=== PATIENT | female | born 1990 | race American Indian/Alaskan Native ===

== ENCOUNTER 2016-06-24 06:08 | Inpatient (IN) | payer MEDICAID ==
[~2016-06-24 06:08] MED LIST: ANCEF/STERILE WATER 2 GM/20 ML IV NR
[2016-06-24] MEDS ORDERED: LACTATED RINGERS 1,000 ML ONE ×2 (06:22→08:11)
[2016-06-24] MEDS: LACTATED RINGERS 1,000 ML IV SCH ×3 (06:33→10:19)
[2016-06-24] MEDS ORDERED: BICITRA PO ONE (06:42)
[2016-06-24] MEDS ORDERED: REGLAN IV ONE (06:42)
[2016-06-24] MEDS ORDERED: PEPCID IV ONE (06:42)
[2016-06-24] MEDS ORDERED: PITOCin/NS 20 UNIT/1000ML DRIP 20 UNITS/1,000 ML BAG IV SCH ×2 (07:00→12:17)
[2016-06-24 07:02] LABS: Basophils % (Auto) 0.3 % (0.0-1.8); Eosinophils % (Auto) 1.1 % (0.0-4.3); Hematocrit 30.5 % (30.3-42.9); Hemoglobin 9.3 gm/dl (10.1-14.3); Mean Corpuscular HGB Conc 30 % (30-34); Mean Corpuscular Hemoglobin 22 pg (28-32); Mean Corpuscular Volume 71 fl (79-97); Platelet Count 265 K/mm3 (140-440); Red Blood Count 4.27 M/mm3 (3.65-5.03); Red Cell Distribution Width 16.8 % (13.2-15.2)
--- NOTE | 2016-06-24 07:36 | Anesthesia Day of Surgery ---
Anesthesia Day of Surgery - Day of Surgery Patient Examined: Yes Patient H&P Reviewed: Yes Patient is NPO: Yes
--- NOTE | 2016-06-24 07:36 | Anesthesia Consultation ---
Anesthesia Consult and Med Hx Date of service: 06/24/16 - Airway Anesthetic Teeth Evaluation: Good ROM Head & Neck: Adequate Mental/Hyoid Distance: Adequate Mallampati Class: Class II Intubation Access Assessment: Probably Good - Pulmonary Exam CTA: Yes - Cardiac Exam Cardiac Exam: RRR - Pre-Operative Health Status ASA Pre-Surgery Classification: ASA2 Proposed Anesthetic Plan: Spinal - Pulmonary Hx Asthma: No - Cardiovascular System Hx Hypertension: No - Central Nervous System Hx Seizures: No Hx Psychiatric Problems: No - Endocrine Hx Renal Disease: No Hx Hypothyroidism: No Hx Hyperthyroidism: No - Hematic Hx Anemia: No Hx Sickle Cell Disease: No - Other Systems Hx Alcohol Use: No
[2016-06-24] MEDS ORDERED: NARCAN 0.4 MG/1 ML IV PRN ×2 (07:37→12:17)
[2016-06-24] MEDS ORDERED: DILAUDID IV PRN (07:37)
[2016-06-24] MEDS ORDERED: SODIUM CHLORIDE FLUSH SYRINGE 10 ML IV NR ×2 (08:00→12:17)
[2016-06-24] MEDS ORDERED: MORPHINE ONE (08:14)
--- NOTE | 2016-06-24 08:16 | History and Physical Report ---
History of Present Illness Date of examination: 06/24/16 Date of admission: 06/24/16 06:37 Chief complaint: I'm having contractions History of present illness: Patient is a 25 year old who presents at 38+ weeks in labor and dilated to 4 cm. Patient has a history of a prior classical and 2 additional for a total of 3 previous c/sections. Patient is also desiring tubal ligation. Her course has been uncomplicated. Past History Past Medical History: no pertinent history Past Surgical History: section Social history: - Obstetrical History Expected Date of Delivery: 06/30/16 Actual Gestation: 39 Week(s) 1 Day(s) : 5 Number of Living Children: 3 Medications and Allergies Allergies Allergy/AdvReac Type Severity Reaction Status Date / Time No Known Allergies Allergy Verified 06/16/16 20:04 Home Medications Medication Instructions Recorded Confirmed Last Taken Type No Known Home Medications [No 06/24/16 06/24/16 Unknown History Reported Home Medications] Active Meds: Active Medications Cefazolin Sodium (Ancef/Sterile Water 2 Gm/20 Ml) 2 gm IV PREOP NR Stop: 06/24/16 23:59 Hydromorphone HCl (Dilaudid) 0.5 mg IV Q5M PRN PRN Reason: Breakthrough Pain Stop: 06/24/16 07:53 Lactated Ringer's (Lactated Ringers) 1,000 mls @ 2,250 mls/hr IV PREOP LILIA Stop: 06/25/16 07:27 Last Admin: 06/24/16 07:19 Dose: 2,250 mls/hr Oxytocin/Sodium Chloride (Pitocin/Ns 20 Unit/1000ml Drip) 20 units in 1,000 mls @ 0 mls/hr IV TITR LILIA PRN Reason: As Directed Naloxone HCl (Narcan 0.4 Mg/1 Ml) 0.2 mg IV Q2MIN PRN PRN Reason: Res Rate </= 8 or 02 SAT < 92% Stop: 06/26/16 07:38 Sodium Chloride (Sodium Chloride Flush Syringe 10 Ml) 10 ml IV PRN NR Review of Systems All systems: negative Genitourinary: contractions - Vital Signs Vital signs: Vital Signs Pulse Pulse Ox 71 98 06/24/16 06:25 06/24/16 06:25 Temp Pulse Resp BP Pulse Ox 98.2 F 70 112/71 97 06/24/16 06:26 06/24/16 08:07 06/24/16 06:26 06/24/16 08:07 - Physical Exam Breasts: Cardiovascular: Regular rate, Normal S1, Normal S2 Lungs: Positive: Clear to auscultation, Normal air movement Abdomen: Positive: normal appearance, soft, normal bowel sounds. Negative: distention, tenderness Vulva: both: normal Vagina: Positive: normal moisture. Negative: discharge Cervix: Negative: lesion, discharge Uterus: Positive: normal size, normal contour Adnexa: both: normal Anus/Rectum: Positive: normal perianal skin, heme negative. Negative: rectal mass, hemorrhoids Extremities: Deep Tendon Reflex Grade: Normal +2 - Obstetrical FHR: auscultation normal Cervical Dilatation: 5 Cervical Effacement Percentage: 100 station: 0 Results Result Diagrams: 06/24/16 06:33 Abnormal lab results 06/24/16 Range/Units 06:33 WBC 12.0 H (4.5-11.0) K/mm3 Hgb 9.3 L (10.1-14.3) gm/dl MCV 71 L (79-97) fl MCH 22 L (28-32) pg RDW 16.8 H (13.2-15.2) % Seg Neutrophils % 72.5 H (40.0-70.0) % Seg Neutrophils # 8.7 H (1.8-7.7) K/mm3 All other labs normal. Assessment and Plan IUP at 30.1 presenting for repeat in labor. Admit to L&D. prepare for repeat and bilateral tubal ligation.
[2016-06-24] MEDS ORDERED: WATER FOR IRRIG STERILE IR ONE (08:38)
[2016-06-24] MEDS ORDERED: NACL 0.9% IR ONE (08:38)
[2016-06-24] MEDS ORDERED: ZOFRAN ONE (08:40)
[2016-06-24] MEDS ORDERED: NACL 0.9% 500 ML 500 ML IV ONE (08:57)
[2016-06-24] MEDS ORDERED: TORADOL ONE (09:27)
--- NOTE | 2016-06-24 09:39 | Procedure Note ---
OB Delivery Note - Delivery Date of Delivery: 06/24/16 Surgeon: BETO LOCKE Estimated blood loss: other (800cc) - Vaginal Delivery presentation: vertex Delivery position: OA - Section Preop diagnosis: repeat , desires sterilization Postop diagnosis: same section procedure: repeat low transverse, other (unilateral tubal ligation (right side only)) Disposition: PACU - Infant A at 1 minute: 8 at 5 minutes: 9 Infant Gender: Male (7 pounds 7 ounces 3371 grams)
--- NOTE | 2016-06-24 09:51 | Post Anesthesia Evaluation ---
- Post Anesthesia Evaluation Patient Participated: Yes Airway Patent: Yes Stable Respiratory Function: Yes Nausea/Vomiting: No Temp > 96.8F: Yes Pain Manageable: Yes Adequeate Hydration: Yes Anesthesia Complications: No Block Receding Appropriately: Yes Patient on Ventilator: No
[2016-06-24] MEDS ORDERED: NACL 0.9% 1000 ML 1,000 ML ONE (10:37)
[2016-06-24] MEDS ORDERED: D5LR 1,000 ML IV SCH (12:17)
[2016-06-24] MEDS ORDERED: MORPHINE IV PRN (12:17)
[2016-06-24] MEDS ORDERED: ZOFRAN IV PRN (12:17)
[2016-06-24] MEDS ORDERED: LANSINOH TP PRN (12:17)
[2016-06-24] MEDS ORDERED: MYLICON PO PRN (12:17)
[2016-06-24] MEDS ORDERED: TUCKS PAD TP PRN (12:17)
[2016-06-24] MEDS ORDERED: MILK OF MAGNESIA PO PRN (12:17)
--- NOTE | 2016-06-24 14:24 | Operative Report ---
PREOPERATIVE DIAGNOSES: 1. Intrauterine at 39 and 1/7 weeks. 2. Active labor. 3. Previous section x3. 4. Undesired fertility. POSTOPERATIVE DIAGNOSES. 1. Intrauterine at 39 and 1/7 weeks. 2. Active labor. 3. Previous section x3. 4. Undesired fertility. PROCEDURE: Repeat low transverse section with extensive lysis of adhesions to unilateral tubal ligation. SURGEON: Kamini Goidnez MD. ANESTHESIA: Spinal epidural. ESTIMATED BLOOD LOSS: 800. IV FLUIDS: 1300. URINE OUTPUT: 150 mL. FINDINGS: Viable male , weight 7 pounds 7 ounces, 3371 grams, and Apgars 8 and 9. DESCRIPTION OF PROCEDURE: The patient presented to the OR with IV running in place. She was given spinal anesthesia without difficulty. She was then placed in dorsal supine position with a leftward tilt and prepped and draped in normal sterile fashion. Attention was then turned to the patient's abdomen. An Allis test confirmed adequate anesthesia. Pfannenstiel incision was then made along the previous section using a scalpel and carried to the underlying fascia using a scalpel and Bovie. The fascia layer was densely adherent to the underlying muscle, so upon entering to the fascia with some areas of the muscles were also identified. The fascia was able to be extended bilaterally and the superior aspect of the fascia was grasped and tented upward. When trying to take down the fascia, it was noted that there was dense scar tissue of the anterior rectus muscle to the overlying fascia. However, using the scalpel and dissecting out laterally, we were able to visualize the muscle layer. The muscles were then noted to be densely adhered to the underlying uterus. Moving superiorly, we were able to enter peritoneal cavity from entering superior to the uterus. An area of muscle then transected around the area of the central scarring, so that the uterus could be visually easier to identify. The lower uterine segment was ultimately dissected and visualized. The bladder blade was then put in place. Once the lower uterine segment was identified, it was noted that the uterus was adhered in the midline to overlying abdominal wall from the area of the lower uterine segment to the level of the fundus. Nevertheless, the hysterotomy incision was then made using a scalpel carried to the underlying amniotic sac, which ruptured for clear fluid. The infant was delivered atraumatically. Mouth and nose were suctioned on the field. Cord was clamped and cut. He was handed to the awaiting NICU personnel. Due to the extensive adhesions, the uterus could not be exteriorized; therefore, the placenta was delivered manually with the uterus still in the abdomen. The uterus was then cleared of all clots and debris and hysterotomy incision was closed in a running locked fashion using 0 Vicryl. There was excellent hemostasis noted at this point and incision was sprayed with TISSEEL. Again due to the density of adhesions the uterus could not be exteriorized and the tubes could not be identified; however, with some lateral rotation of the uterus the right tube was able to be identified. It was then grasped with a [place] clamp and ligated with the [place] style tubal ligation; however, the left tube was adhered in a mass of dense adhesions from the uterine wall to the abdominal wall and could not be identified or seen. Therefore, decision was made not to proceed with ligating of the left tube. At this point, the muscles were reapproximated with a running suture of 0 Vicryl in the midline. The fascia was closed in a running fashion using 0 Vicryl. The subcutaneous tissue was then copiously irrigated and the skin was closed with kamron. The sponge, lap, needle, and instrument counts were correct x 2. She tolerated the procedure well and taken to recovery in stable condition. JOB# [id number] DAYANA/KEVIN AN
[2016-06-24 21:43] LABS: Hematocrit 29.5 % (30.3-42.9); Hemoglobin 9.1 gm/dl (10.1-14.3)
[2016-06-25] MEDS: MOTRIN PO PRN ×3 (00:36→18:29)
[2016-06-25] MEDS ORDERED: BOOSTRIX IM ONE (06:00)
--- NOTE | 2016-06-25 07:25 | Admit Criteria Form ---
Admission Criteria Documentation: AMBULATORY SURGERY EXCEPTION CRITERIA Ambulatory Surgery Exception Criteria ( Place 'X' for any and all applicable criteria): Surgery or procedure performed on ambulatory basis may require inpatient stay for[A] ANY ONE of the following(1)(2)(3)(4)(5)(6)(7)(8)(9): [X] I. A preoperative situation, condition, or finding that warrants inpatient stay as indicated by ANY ONE of the following: [] a) Inpatient care needed because of severity of a disease or condition rather than the surgery (eg, severe cardiac or respiratory disease, severe infection) (15) (16 ) (17) (18) [] b) Emergent procedure (eg, angioplasty for acute ischemia)(19) [X] c) Complex surgical approach or situation as indicated by ANY ONE of the following(3): [] i) Open approach needed instead of usual endoscopic, transcatheter, or other less invasive procedure [X] ii) Difficult approach because of previous operation [] iii) Airway monitoring required after open neck procedures(20)(21) [] iv) Large mass requiring unusually extensive dissection [] v) Additional complicating feature requiring inpatient care (eg, drain management)(22(23): [] d) Major surgery in a pt with high anesthetic risk as indicated by ANY ONE of the following (2)(3)(5)(7)(8): [] i) ASA risk class III or higher (severe systemic disease impairing function) [D] [] ii) Advanced age (eg, older than 85 years)(14)(24) [] iii) Symptomatic heart failure(25) [] iv) Symptomatic asthma or COPD(8)(21) [] v) Morbid obesity with hemodynamic or respiratory problems(20)( 21)(26)(27) [] vi) Obstructive sleep apnea(20)(21) [] vii) Former premature infants who are younger than 60 weeks [] viii) High risk for severe postoperative abnormalities (eg, severe postoperative hypocalcemia after parathyroidectomy for severe hyperparathyroidism)(27)( 28) [] ix) Unstable angina(25) [] e) Drug-related risk requiring inpatient stay as indicated by ANY ONE of the following(5)(10)(14)(32)(33) [] i) Procedure requires discontinuing drugs or other therapy (eg , antiarrhythmic medication, antiseizure medication), which necessitates inpatient observation or treatment.(18)(31) [] ii) Major surgery and high risk drug use as indicated by ANY ONE of the following: [] 1) Active abuse of cocaine or similar drug [] 2) Monoamine oxidase inhibitor use [] 3) Other drug identified as posing risk [] f) Inadequate outpatient care situation as indicated by ANY ONE of the following(5)(10)(14)(32)(33) [] i) Patient lives remote from medical facility and procedure has urgent complication potential, and temporary nearby residence cannot be arranged [] ii) Patient will have postprocedure incapacitation and inadequate assistance at home, or alternative level of care cannot be arranged. [] iii) Patient will have long general anesthesia or procedure side effect resolution time, and competent person to stay with patient on first postoperative night at home or alternative level of care cannot be arranged. []iv) Other inadequate outpatient situation that cannot be handled by other means [] II. A perioperative event, condition, or finding that warrants inpatient stay as indicated by ANY ONE of the following (1)(2)(3): [] a) Inadequate physiologic recovery: cardiovascular, respiratory, or hemodynamic status not normal or near preoperative baseline(18) [] b) Hemodynamic instability [] c) Patient not alert with near normal or baseline mental status [] d) Temperature not normal or as expected and not appropriate for outpatient treatment of condition [] e) Ambulatory or appropriate activity level status not yet achieved post procedure [E](34)(35)(36) [] f) Operative site not appropriate (eg, unexpected or excessive drainage or bleeding) [] g) Postoperative effects not resolved or adequately managed (eg, significant pain or vomiting not appropriate for outpatient or next level of care)(10)(12) [] h) Complicating features requiring inpatient care as indicated by ANY ONE of the following(37): [] i) Severe complications of procedure (eg, bowel injury, airway compromise, vascular injury,severe hemorrhage) [] ii) Extensive (eg, dissection far beyond usual scope of procedure ) or prolonged (eg, 120 minutes beyond usual) surgery needed requiring inpatient postoperative care [] iii) Conversion to an open or complex procedure that requires inpatient care (eg, open vs laparoscopic cholecystectomy, abdominal vs vaginal hysterectomy)(38) [] iv) Comorbid condition or test result identified during or post procedure that requires inpatient care (7) [] v) Malignant hyperthermia(30) [] vi) Other complicating feature requiring inpatient care(22)(23) Inpatient stay may be needed until ALL of the following are present (1)(2)(3)(4) (5)(6)(10)(14)(33)(40): []a) Physiologic recovery: cardiovascular, respiratory, and hemodynamic status normal or near preoperative baseline []b) Hemodynamic stability []c) Patient alert, with near normal or baseline mental status []d) Temperature appropriate: patient afebrile or temperature appropriate for outpt treatment of condition []e) Activity level appropriate: ambulatory or appropriate activity level post procedure []f) Operative site appropriate as indicated by ALL of the following: []i) Site dry or with expected drainage []ii) Any blood noted is as expected for procedure. []g) Postoperative effects resolved or managed as indicated by ALL of the following: []i) Pain management appropriate for outpatient (or next level of) care(10) []ii) Minimal nausea and vomiting: if present, successfully treated with oral medication(12) []iii) Headache, dizziness, or drowsiness (if present) are mild. []h) Voiding status acceptable as indicated by ANY ONE of the following: []i) Voiding spontaneously []ii) No voiding but instructions given for follow-up in 6 to 8 hours []iii) Urinary catheter in place, and instructions given for follow-up []i) Complicating features requiring inpatient care manageable at a lower level of care(37) []j) Comorbid conditions manageable at a lower level of care(37) The original [employer] content created by [employer] has been revised. The portions of the content which have been revised are identified through the use of italic text or in bold, and [employer] [employer] has neither reviewed nor approved the modified material. All other unmodified content is copyright [employer]. Please see references footnoted in the original [employer] edition 2016 Admission Criteria Met: Yes
--- NOTE | 2016-06-25 08:23 | Progress Note ---
Assessment and Plan A: POD#1 s/p repeat section with unilateral tubal ligation, Asymtomatic anemia P: Routine postoperative care. Subjective - Subjective Date of service: 06/25/16 Principal diagnosis: POD#1 s/p repeat /BTL at term Interval history: No overnight events. Patient reports: appetite normal, voiding normally, pain well controlled, ambulating normally [place]: doing well, bottle feeding Objective - Vital Signs Latest vital signs: Vital Signs Temp Pulse Pulse Resp BP BP Pulse Ox 06/25/16 04:28 98.4 F 71 20 117/55 06/25/16 00:05 98.6 F 74 18 101/58 06/24/16 21:20 98.1 F 75 22 109/64 06/24/16 16:17 97.4 F L 75 18 123/82 06/24/16 14:30 98.0 F 62 18 120/68 06/24/16 13:55 97.7 F 64 20 108/70 06/24/16 13:25 97.2 F L 66 20 122/62 06/24/16 13:10 98.9 F 66 20 131/70 06/24/16 12:00 97.9 F 59 L 20 103/65 06/24/16 11:34 58 L 19 96/44 99 06/24/16 11:21 97.6 F 61 19 114/73 99 06/24/16 11:13 59 L 19 112/66 100 06/24/16 10:56 64 18 113/32 98 06/24/16 10:40 64 11 L 97/40 98 06/24/16 10:26 55 L 11 L 111/50 98 06/24/16 10:12 54 L 12 88/36 98 06/24/16 10:02 51 L 11 L 97/40 99 06/24/16 09:58 63 20 103/49 99 06/24/16 09:52 55 L 20 104/55 97 06/24/16 09:40 97.8 F 66 18 101/48 98 Intake and Output 06/24/16 06/25/16 06/25/16 22:59 06:59 14:59 Intake Total 745 1190 Output Total 200 700 Balance 545 490 Intake: IV 375 750 D5lr 1,000 ml @ 125 mls/ 375 750 hr IV DIRECT LILIA Rx#: [id number] Oral 120 Intake, Free Water 440 Blood Product 250 Leukoreduced Red Blood 250 Cells Unit [id number] Output: Urine 200 700 Indwelling Catheter 200 300 Void 400 Other: Total, Intake Amount 120 Total, Output Amount 200 400 - Exam Breasts: Present: deferred Cardiovascular: Present: Regular rate Lungs: Present: Clear to auscultation Abdomen: Present: soft (obese), distention (moderate), abnormal bowel sounds ( hypoactive ) Extremities: Present: normal Incision: Present: dressed - Labs Labs: Abnormal lab results 06/24/16 06/24/16 Range/Units 06:33 21:13 Hgb 9.1 L (10.1-14.3) gm/dl Hct 29.5 L (30.3-42.9) % Crossmatch See Detail
[2016-06-25] MEDS ORDERED: BENADRYL PO PRN (08:24)
[2016-06-25] MEDS ORDERED: BENADRYL IV PRN (09:00)
[2016-06-25] MEDS: PRENATAL VITAMIN PO SCH (09:19)
[2016-06-25] MEDS: MILK OF MAGNESIA PO SCH ×3 (09:19→18:31)
[2016-06-25] MEDS: FEOSOL PO SCH (09:20)
[2016-06-25] MEDS ORDERED: FLUARIX QUAD 2016-2017(36 MOS+) IM ONE (12:00)
[2016-06-26] MEDS: PERCOCET 5/325 PO PRN ×3 (04:37→23:47)
--- NOTE | 2016-06-26 08:35 | Progress Note ---
Assessment and Plan - Patient Problems (1) Previous delivery affecting , delivered Current Visit: Yes Status: Acute Plan to address problem: Patient doing well Discharge home tomorrow Subjective - Subjective Date of service: 06/26/16 Principal diagnosis: POD#2 s/p repeat /BTL at term Interval history: Patient is doing well. She denies any significant complaints. The patient is tolerating a regular diet without complication. Patient reports: appetite normal, voiding normally, pain well controlled [place]: doing well Objective - Vital Signs Latest vital signs: Vital Signs Temp Pulse Resp BP 06/26/16 04:37 18 06/25/16 23:40 98.6 F 79 16 125/76 06/25/16 18:29 18 06/25/16 16:38 98.6 F 80 20 102/52 Intake and Output 06/25/16 06/26/16 06/26/16 22:59 06:59 14:59 Intake Total 240 800 Balance 240 800 Intake: Oral 240 800 Other: Total, Intake Amount 120 300 # Voids Void 1 # Bowel Movements 1 - Exam Lungs: Present: Clear to auscultation Abdomen: Present: normal appearance, soft Incision: Present: normal
--- NOTE | 2016-06-26 08:37 | Discharge Summary ---
Providers - Providers Date of Admission: 06/25/16 11:17 Date of discharge: 06/27/16 Attending physician: DREW ZEPEDA Primary care physician: DREW ZEPEDA Hospitalization Reason for admission: active labor, section Delivery: Procedure: section, bilateral tubal ligation, repeat low transverse Incision: normal complications: transfusion (2 units packed red blood cells) Discharge diagnosis: IUP at term delivered [place] baby: male Hospital course: The patient presented in active labor with advanced cervical dilatation. The patient has a history of classical delivery. She was taken for repeat delivery and tubal ligation. Her postoperative course is significant for anemia with the patient required transfusion of 2 units of packed red blood cells. The patient is well otherwise. She was discharged home once she met discharge criteria. Condition at discharge: Good Disposition: DISCHARGED TO HOME OR SELFCARE - Discharge Diagnoses (1) Previous delivery affecting , delivered Status: Acute Plan - Discharge Medications Prescriptions: RX: Ferrous Sulfate [Feosol 325 MG tab] 325 mg PO BID #60 tablet Ibuprofen [Motrin] 800 mg PO Q8HR PRN #30 tablet PRN Reason: Pain oxyCODONE /ACETAMINOPHEN [Percocet 5/325] 1 tab PO Q6HR PRN #40 tablet PRN Reason: Pain Vit-Fe Fumar-FA [ Vitamin] 1 tab PO QDAY #30 tablet - Provider Discharge Summary Activity: no sex for 6 weeks, no heavy lifting 4 weeks, no strenuous exercise Diet: routine Instructions: routine Additional instructions: [] Smoking cessation referral if applicable(refer to patient education folder for contact #) [] Refer to [facility] Booklet Call your doctor immediately for: * Fever > 100.5 * Heavy vaginal bleeding ( >1 pad per hour) * Severe persistent headache * Shortness of breath * Reddened, hot, painful area to leg or breast * Drainage or odor from incision. * Keep incision clean and dry at all times and follow doctor's instructions regarding bathing/showering Follow-up in 2 weeks for an incision check - Follow up plan
[2016-06-26] MEDS: FEOSOL PO SCH ×2 (10:30→10:32)
[2016-06-26] MEDS: PRENATAL VITAMIN PO SCH ×2 (10:30→10:32)
[2016-06-26] MEDS: MOTRIN PO PRN (13:50)
[2016-06-27] MEDS: FEOSOL PO SCH (09:42)
[2016-06-27] MEDS: PRENATAL VITAMIN PO SCH (09:42)
[2016-06-27] MEDS ORDERED: M-M-R II VACCINE SUB-Q ONE (11:00)
[2016-06-27 13:24] VITALS: BP 106/56
== END 2016-06-27 11:20 | disposition home or self-care (01) | DRG 766 ==
LOC: TRG 06:08 → APU 06:37 → INTOOBSV 06:37 → OB 12:00 → OBSVTOIN 06-25 11:17
PROVIDERS: ADMIT Obstetrics & Gynecology; ATTEND Obstetrics & Gynecology
PROC: 10D00Z1 Extraction of Products of Conception, Low, Open Approach (ICD-10-PCS; principal; 2016-06-25)
PROC: 0UL Female Reproductive System, Occlusion (ICD-10-PCS; principal; 2016-06-25)
PROC: 30233N1 Transfusion of Nonautologous Red Blood Cells into Peripheral Vein, Percutaneous Approach (ICD-10-PCS; principal; 2016-06-25)
DX: O34.211 Maternal care for low transverse scar from previous cesarean delivery (principal); O99.02 Anemia complicating childbirth; D64.9 Anemia, unspecified; K66.0 Peritoneal adhesions (postprocedural) (postinfection); O99.62 Diseases of the digestive system complicating childbirth; Z37.1 Single stillbirth; Z3A.39 39 weeks gestation of pregnancy; Z30.2 Encounter for sterilization
CPT/HCPCS: 36415; 85014; 85018; 85025; 86850; 86900; 86901; 86920; 88302; 90471; 90472; 90686; 90707; 90715; 99211; C9250; G0008; G0378; G0463; J1885; J2270; J2405; J2590; J2765; J7030; J7120; J7121; P9016